=== PATIENT | female | born 1990 | race American Indian/Alaskan Native ===

== ENCOUNTER 2021-01-07 06:32 | Emergency (ER) | payer SELFPAY ==
[2021-01-07 08:44] VITALS: BP 121/75
--- NOTE | 2021-01-07 08:48 | Emergency Department Report ---
- General Chief Complaint: Upper Respiratory Infection Stated Complaint: POSITIVE COVID/JAQUELIN Time Seen by Provider: 01/07/21 08:45 Source: patient Mode of arrival: Ambulatory Limitations: No Limitations - History of Present Illness Initial Comments: 30-year-old female presents to the ER today with complaints of cold-like symptoms. Patient states that symptoms started a week ago. She states that she started with headache, generalized muscle ache, rhinorrhea, subjective fever, and lots of coughing. She reports pain in her anterior chest when she coughs and she feels like "she is breathing heavy". She denies any wheezing. She denies any vomiting, diarrhea or abdominal pain. She denies any UTI symptoms or any abnormal vaginal symptoms. She states that she did take a COVID-19 test and it was +3 days ago. She did not get any of the COVID-19 vaccines. She denies any ill contacts or known COVID-19 contacts. She denies any recent travel. She denies any underlying past medical history. She does not smoke or do any illicit drugs. She states that she did call and talk to her primary care doctor about her symptoms who called in some antibiotics and something for cough (names of which she does not know) for her but she has not picked it up as yet. MD Complaint: cough, rhinorrhea, nasal congestion -: Gradual, days(s) (1) - Related Data Previous Rx's Medication Instructions Recorded Last Taken Type Acetaminophen/Codeine [Tylenol 1 tab PO Q6H PRN #12 tab 01/07/21 Unknown Rx /Codeine # 3 tab] Albuterol Mdi (or & Nicu Only) 1 - 2 puff IH QID PRN #8.5 gram 01/07/21 Unknown Rx [ProAir HFA Inhaler] dexAMETHasone [Decadron] 4 mg PO ONCE #5 tablet 01/07/21 Unknown Rx Allergies Allergy/AdvReac Type Severity Reaction Status Date / Time No Known Allergies Allergy Unverified 01/07/21 08:42 ED Review of Systems ROS: Stated complaint: POSITIVE COVID/JAQUELIN Other details as noted in HPI Comment: All other systems reviewed and negative Constitutional: fever ENT: congestion, other (rhinorrhea ) Respiratory: cough, shortness of breath. denies: wheezing Cardiovascular: chest pain (with cough) Gastrointestinal: denies: abdominal pain, nausea, vomiting, diarrhea, constipation, hematemesis, hematochezia Genitourinary: denies: urgency, dysuria, frequency, hematuria, discharge, abnormal menses, dyspareunia Skin: denies: rash, lesions, change in color, change in hair/nails, pruritus Neurological: denies: headache, weakness, numbness, paresthesias, confusion, abnormal gait, vertigo Psychiatric: denies: anxiety, depression, auditory hallucinations, visual hallucinations, homicidal thoughts, suicidal thoughts Hematological/Lymphatic: denies: easy bleeding, easy bruising, swollen glands ED Past Medical Hx - Past Medical History Previous Medical History?: No - Surgical History Past Surgical History?: No - Medications Home Medications: Home Medications Medication Instructions Recorded Confirmed Last Taken Type Acetaminophen/Codeine [Tylenol 1 tab PO Q6H PRN #12 tab 01/07/21 Unknown Rx /Codeine # 3 tab] Albuterol Mdi (or & Nicu Only) 1 - 2 puff IH QID PRN #8.5 gram 01/07/21 Unknown Rx [ProAir HFA Inhaler] dexAMETHasone [Decadron] 4 mg PO ONCE #5 tablet 01/07/21 Unknown Rx ED Physical Exam - General Limitations: No Limitations General appearance: alert, in no apparent distress, obese - Head Head exam: Present: atraumatic, normocephalic, normal inspection - Eye Eye exam: Present: normal appearance, PERRL, EOMI Pupils: Present: normal accommodation - Neck Neck exam: Present: normal inspection, full ROM. Absent: meningismus - Respiratory Respiratory exam: Present: normal lung sounds bilaterally. Absent: respiratory distress, wheezes, rales, rhonchi - Cardiovascular Cardiovascular Exam: Present: regular rate, normal rhythm, normal heart sounds - GI/Abdominal GI/Abdominal exam: Present: soft. Absent: distended, tenderness, guarding - Neurological Exam Neurological exam: Present: alert, oriented X3, CN II-XII intact, normal gait - Psychiatric Psychiatric exam: Present: normal affect, normal mood - Skin Skin exam: Present: intact ED Course Vital Signs 01/07/21 08:43 Temperature 98.4 F Pulse Rate 100 H Respiratory 24 Rate Blood Pressure 121/75 [Right] O2 Sat by Pulse 100 Oximetry ED Medical Decision Making - Medical Decision Making The patient is resting comfortably, is alert and in no distress. The patient fishman s normal mental status and is neurologically intact. The patient appears well and solids by mouth and there is no significant dehydration. There is no respiratory distress and no signs of systemic toxicity. Her history, exam, diagnostic testing and current condition do not demonstrate an infectious process such as meningitis, severe pneumonia, retropharyngeal abscess, ARDS, sepsis or other serious viral/ bacterial infection requiring further testing, treatment, consultation or admission at this time. Her vital signs have been stable. Recommend to patient that she get the prescription for the antibiotic and the cough syrup that was sent in by her primary care doctor, I will also add albuterol inhaler and Decadron to her regimen. R ecommend rest, and lots of fluids and to continue quarantine for the next 10 to 14 days. Also informed if his symptoms worsens in any way to return to the ER., the patient's condition is stable and appropriate for discharge. The patient will pursue further outpatient evaluation with the primary care physician. Critical care attestation.: If time is entered above; I have spent that time in minutes in the direct care of this critically ill patient, excluding procedure time. ED Disposition Clinical Impression: COVID-19 virus infection Disposition: 01 HOME / SELF CARE / HOMELESS Is pt being admited?: No Does the pt Need Aspirin: No Condition: Stable Instructions: COVID-19, COVID-19: How to Protect Yourself and Others - [facility] Additional Instructions: I recommend that you get the antibiotics and the cough medication that was sent in by your primary care doctor filled and start taking it. I also recommend that you use albuterol inhaler as prescribed, and start taking the Decadron today. Take the Tylenol threes as prescribed to help with any pain. I recommend that you quarantine for the next 10 to 14 days, and protect your family members and others by wearing a mask and lots of handwashing and staying home. Recommend rest, lots of fluids, and also taking a multivitamin with vitamin C vitamin D and zinc. I recommend close follow-up with your primary care doctor, but return to the ER if your symptoms worsens or changes in any way. Prescriptions: dexAMETHasone [Decadron] 4 mg PO ONCE #5 tablet Albuterol Mdi (or & Nicu Only) [ProAir HFA Inhaler] 1 - 2 puff IH QID PRN #8.5 gram PRN Reason: Shortness Of Breath Acetaminophen/Codeine [Tylenol /Codeine # 3 tab] 1 tab PO Q6H PRN #12 tab PRN Reason: Pain Referrals: PRIMARY CARE, [Primary Care Provider] - 3-5 Days Time of Disposition: 08:55
== END 2021-01-07 09:18 | disposition home or self-care (01) ==
LOC: ED 06:32
DX: U07.1 COVID-19 (principal); Z79.899 Other long term (current) drug therapy
CPT/HCPCS: 99281